=== PATIENT | male | born 1965 ===

== ENCOUNTER → 2025-07-02 09:33 | Outpatient (CLI) | payer OTHER ==
[2025-07-02 10:05] LABS: BASO % 1.0 % (0.1-1.2); EOS # 0.02 (0.04-0.54); EOS % 0.4 % (0.7-7.0); LYMPH # 0.98 (1.18-3.74); LYMPH % 19.1 % (19.3-53.1); MEAN PLATELET VOLUME 10.60 fl (9.4-12.4); MONO # 0.43 (0.24-0.82); MONO % 8.4 % (4.7-12.5); NEUT # 3.60 (1.56-6.13); NEUT % 70.1 % (34.0-71.1); RED CELL DISTRIBUTION WIDTH 11.0 % (11.6-14.4)
[2025-07-02 11:03] LABS: URINE APPEARANCE Clear; URINE BILIRRUBIN Small (NEGATIVE); URINE BLOOD Negative; URINE COLOR Dark Yellow; URINE KETONE Negative (NEGATIVE); URINE LEUKOCYTE Trace; URINE NITRATE Negative; URINE PROTEIN Trace (NEGATIVE); URINE UROBILINOGEN 1.0 E.U./dl
[2025-07-02 11:05] LABS: ALT/SGPT 51.0 U/L (12-78); AST/SGOT 15.0 U/L (15-37); BILIRUBIN TOTAL 1.0 mg/dL (0.3-1.2); BUN CREA RATIO 15.0 (7.0-25.0); CHOL HDL RATIO 3.1 (0-5.0); CREATININE SERUM 0.88 mg/dL (0.70-1.30); GFR 88.04; GLOBULINA 2.9 G/DL (2.4-3.5); HDL 44.0 mg/dl (40-60); LDL 70.0 mg/dl (0-130); OSMOLALITY SERUM 285.0 MOSM/KG (275-295); VLDL 21.0 (0-39)
[2025-07-02 11:07] LABS: GLUCOSE FASTING 222.0 mg/dL (65-100)
[2025-07-02 11:07] LABS: URINE EPITHELIAL CELLS 2.4 uL (0.0-38.8); URINE RBC 12.0 uL (0.0-20.8); URINE WBC 2.7 uL (0.0-23.2)
[2025-07-02 11:24] LABS: CREATININE URINE RANDOM 197.0 MG/DL (30-125); URINE BACTERIA 3.5 uL (0.0-1933); URINE CAST 0.14 uL (0.0-1.40); URINE GLUCOSE 100 MG/DL (NEGATIVE)
== END | disposition home or self-care (01) ==
LOC: LAB 09:33
DX: I10 Essential (primary) hypertension (principal); E78.00 Pure hypercholesterolemia, unspecified; D64.9 Anemia, unspecified; E11.65 Type 2 diabetes mellitus with hyperglycemia; R19.5 Other fecal abnormalities; E11.9 Type 2 diabetes mellitus without complications; Z12.11 Encounter for screening for malignant neoplasm of colon; R80.0 Isolated proteinuria; N18.30 Chronic kidney disease, stage 3 unspecified

== ENCOUNTER 2025-07-03 15:02 | Outpatient (CLI) | payer OTHER ==
[2025-07-03 15:43] LABS: ob NEGATIVE (NEGATIVE)
== END 2025-07-03 15:08 | disposition home or self-care (01) ==
LOC: LAB 15:02
DX: I10 Essential (primary) hypertension (principal); E78.00 Pure hypercholesterolemia, unspecified; D64.9 Anemia, unspecified; E11.65 Type 2 diabetes mellitus with hyperglycemia; R19.5 Other fecal abnormalities; E11.9 Type 2 diabetes mellitus without complications; Z12.11 Encounter for screening for malignant neoplasm of colon; R80.0 Isolated proteinuria